=== PATIENT | female | born 2000 | race Caucasian/White ===

== ENCOUNTER 2018-04-14 17:20 | Inpatient (IN) | payer SELFPAY ==
[2018-04-14 17:20] VITALS: BMI 39.8
[2018-04-14 18:14] LABS: BASO % 0.4 % (0.0-2.0); EOS # 0.1 K/uL (0.0-0.7); EOS % 0.7 % (0.0-4.0); HEMOGLOBIN 12.8 g/dL (11.0-16.0); LYMPH # 1.7 K/uL (1.0-4.3); LYMPH % 19.6 % (20.0-40.0); MEAN CELL VOLUME 71.2 fL (81.0-99.0); MEAN CORPUSCULAR HEMOGLOBIN 22.7 pg (27.0-31.0); MEAN CORPUSCULAR HGB CONC 31.9 g/dL (33.0-37.0); MONO # 0.5 K/uL (0.0-0.8); MONO % 5.7 % (0.0-10.0); NEUT # 6.6 K/uL (1.8-7.0); NEUT % 73.6 % (50.0-75.0); RBC 5.63 Mil/uL (3.80-5.20); RED CELL DISTRIBUTION WIDTH 14.7 % (11.5-14.5); WHITE BLOOD COUNT 8.9 K/uL (4.8-10.8)
[2018-04-14 18:19] LABS: SQUAMOUS EPITHIAL 1 /hpf (0-5); URINE BACTERIA RARE (<OCC); URINE BILIRUBIN NEGATIVE (NEGATIVE); URINE BLOOD 1+ (NEGATIVE); URINE CLARITY Clear (Clear); URINE COLOR Yellow (YELLOW); URINE GLUCOSE (UA) NORMAL (Normal); URINE LEUKOCYTE ESTERASE NEG Leu/uL (Negative); URINE PROTEIN NEGATIVE (NEGATIVE)
[2018-04-14 18:20] LABS: HCG,QUALITATIVE URINE NEGATIVE (NEGATIVE)
[2018-04-14 18:28] LABS: ACETAMINOPHEN < 10.0 ug/mL (10.0-30.0); ALB/GLOB RATIO 1.3 (1.0-2.1); ALBUMIN 4.1 g/dL (3.5-5.0); ALT/SGPT 83 U/L (9-52); AST/SGOT 49 U/L (14-36); BLOOD UREA NITROGEN 16 mg/dL (7-17); CALCIUM 8.7 mg/dl (8.6-10.4); GFR NON-AFRICAN AMERICAN > 60; SALICYLATE 13.7 mg/dL 1
[2018-04-14 18:31] LABS: BARBITURATES, UR NEGATIVE (NEGATIVE); BENZODIAZEPINES, UR NEGATIVE (NEGATIVE); OPIATES, UR NEGATIVE (NEGATIVE); PHENCYCLIDINE, UR NEGATIVE (NEGATIVE)
--- NOTE | 2018-04-14 18:47 | C.PDOC ---
History Of Present Illness 18 years old female with PMHx of Anxiety presents to ED for complaints of abdominal pain associated with nausea. Patient states "my anxiety hit me so hard, I took 9 aspirin pills 2 hours ago." Denies medical problems, vomiting, chest pain, hallucinations, HI, or other complaints. Patient admits to SI. She also states "I am really stressed from school and home problems, but I love going to my job at [employer]." Time Seen by Provider: 04/14/18 17:30 Chief Complaint (Nursing): Psychiatric Evaluation History Per: Patient History/Exam Limitations: no limitations Onset/Duration Of Symptoms: Hrs Current Symptoms Are (Timing): Still Present Suicide/Self Injury Attempted (Context): Ingestion (9 non enteric coated 325 mg aspirin tablets) Modifying Factor(s): None Associated Symptoms: Anxiety, Suicidal Thoughts, Suicidal Plan Involuntary Hold By: None Recent travel outside of the [place]: No Past Medical History Reviewed: Historical Data, Nursing Documentation, Vital Signs Vital Signs: Last Vital Signs Temp 98.5 F 04/14/18 17:20 Pulse 70 04/14/18 17:20 Resp 20 04/14/18 17:20 BP 134/79 04/14/18 17:20 Pulse Ox 98 04/14/18 17:20 - Medical History PMH: No Chronic Diseases Surgical History: Appendectomy, Cholecystectomy, Tonsillectomy - [facility] Procedures LAPAROSCOPIC CHOLECYSTECTOMY (11/18/12) Family History: States: No Known Family Hx - Social History Hx Alcohol Use: No Hx Substance Use: Yes - Immunization History Hx Tetanus Toxoid Vaccination: No Hx Influenza Vaccination: No Hx Pneumococcal Vaccination: No Review Of Systems Constitutional: Negative for: Fever, Chills Gastrointestinal: Positive for: Nausea, Abdominal Pain. Negative for: Vomiting, Diarrhea Skin: Negative for: Rash Neurological: Negative for: Weakness, Numbness Psych: Positive for: Anxiety, Suicidal ideation Physical Exam - Physical Exam Appears: Non-toxic, No Acute Distress Skin: Warm, Dry, No Rash Head: Atraumatic, Normacephalic Eye(s): bilateral: Normal Inspection, PERRL, EOMI Ear(s): Bilateral: Other (No tinnitus) Oral Mucosa: Moist ([place]) Throat: Normal, No Erythema, No Exudate, No Drooling, No Mass Neck: Normal ROM, Supple Chest: Symmetrical, No Tenderness Cardiovascular: Rhythm Regular, No Murmur Respiratory: Normal Breath Sounds, No Rales, No Rhonchi, No Wheezing Gastrointestinal/Abdominal: Bowel Sounds (Normal/Active ), Soft, Tenderness (Suprapubic ), No Distention, No Guarding, No Rebound Back: Normal Inspection, No CVA Tenderness Extremity: Normal ROM Extremity: Bilateral: Atraumatic, Normal Color And Temperature, Normal ROM Pulses: Left Radial: Normal, Right Radial: Normal Neurological/Psych: Oriented x3, Normal Speech Gait: Steady ED Course And Treatment - Laboratory Results Result Diagrams: 04/14/18 18:12 04/14/18 18:12 O2 Sat by Pulse Oximetry: 98 (RA) Pulse Ox Interpretation: Normal Medical Decision Making Medical Decision Making: Plan: * Zofran * Blood work * Urinalysis * Crisis Notified 19:35 -- Crisis called and states that [facility] denies SI right now so she will be taken off one-to-one. Progress: * Blood found in urine; however patient is currently on her period. 21:13 -- Talked to poison control who stated that if salicylate level is trending downward, patient can be medically cleared. 2423 -- Salicylates levels are 16.1. Spoke with Poison Control who said patient has to be under observation. Patient has to be medically admitted. Disposition Counseled Patient/Family Regarding: Studies Performed, Diagnosis - Disposition Disposition: HOSPITALIZED Disposition Time: 22:53 Condition: STABLE - Clinical Impression Clinical Impression: Drug overdose - Scribe Statement The provider has reviewed the documentation as recorded by the Laviniaibniecy Cabrera All medical record entries made by the Scribe were at my direction and personally dictated by me. I have reviewed the chart and agree that the record accurately reflects my personal performance of the history, physical exam, medical decision making, and the department course for this patient. I have also personally directed, reviewed, and agree with the discharge instructions and disposition.
[2018-04-14 20:33] LABS: INR 1.2; PROTHROMBIN TIME 12.9 SECONDS (9.7-12.2)
--- NOTE | 2018-04-14 23:31 | CP.PCM.HP ---
<Carly Steven P - Last Filed: 04/15/18 10:46> History of Present Illness - History of Present Illness History of Present Illness: H&P for hospitalist service CC: Suicide attempt HPI: 18 year old female with PMHx of anxiety and depression presents to ED after having ingested 9 tablets of aspirin in an attempt to commit suicide. States her anxiety has been building up from stress at home prompting her to take the tablets. She told her friend what she had done, who immediately called 911. Now, in ED patient states she no longer wishes to take her life. She complains of a brief episode of nausea and epigastric abdominal pain, as well as chest pain and shortness of breath immediately following incident, which she states feels like her usual panic attacks. Symptoms resolved with zofran in the ED. Patient reports depressed mood, low energy, loss of appetite, poor sleep and difficulty concentrating for the last few weeks. Patient denies homicidal ideation, hallucinations, fever, chills, vomiting, hematemesis, hematuria, hematochezia, bleeding, or bruising. PMHx: Anxiety, Depression PSHx: Appendectomy 2011, cholecystectomy 2011, Tonsillectomy over 10 years ago Meds: None Allergies: NKDA FamHx: mother and aunt with DM SocHx: Drinks socially on weekends, smokes marijuana a few times per week. 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 -HEENT: No dizziness, No change in vision, No change in hearing, No sore throat, No dysphagia, No nasal congestion, No mucous. -Cardio: + chest pain, No palpitations, No lower extremity edema, No orthopnea. -Resp: No cough,+ dyspnea, No hemoptysis, No wheezing, No pain on inspiration. -GI: + abdominal pain, + nausea, No vomiting, No diarrhea/constipation, No hematochezia, No hematemesis. -: No dysuria, No urinary freq, No incontinence, No hematuria, No change in urinary stream. -MSK: No back pain, No muscle weakness, No radiating pain. -Skin: No itching, No rash, No lesions. -Neuro: No confusion, No numbness, No tingling, No focal weakness, No radicular pain, No syncope. -Psych: + anxiety, + depression, No H/I, + S/I, No hallucinations. Present on Admission - Present on Admission Any Indicators Present on Admission: No Past Patient History - Past Social History Smoking Status: Current Some Days Smoker - CARDIAC Hx Cardiac Disorders: No Hx Hypertension: No - PULMONARY Hx Tuberculosis: No - NEUROLOGICAL HX Cerebrovascular Accident: No Hx Seizures: No - HEMATOLOGICAL/ONCOLOGICAL Hx Cancer: No Hx Human Immunodeficiency Virus (HIV): No - GENITOURINARY/GYNECOLOGICAL Hx Sexually Transmitted Disorders: No - PSYCHIATRIC Hx Substance Use: Yes - SURGICAL HISTORY Hx Appendectomy: Yes Hx Cholecystectomy: Yes Hx Tonsillectomy: Yes - ANESTHESIA Hx Anesthesia: Yes Hx Anesthesia Reactions: No Hx Malignant Hyperthermia: No Meds Allergies/Adverse Reactions: Allergies Allergy/AdvReac Type Severity Reaction Status Date / Time No Known Allergies Allergy Verified 11/18/12 06:28 Physical Exam - Constitutional Appears: Non-toxic, No Acute Distress - Head Exam Head Exam: ATRAUMATIC, NORMOCEPHALIC - Eye Exam Eye Exam: EOMI, Normal appearance, PERRL - ENT Exam ENT Exam: Mucous Membranes Moist - Neck Exam Neck exam: Positive for: Full Rom, Normal Inspection - Respiratory Exam Respiratory Exam: Clear to Auscultation Bilateral, NORMAL BREATHING PATTERN. absent: Rhonchi, Wheezes, Respiratory Distress - Cardiovascular Exam Cardiovascular Exam: RRR, +S1, +S2. absent: Bradycardia, Tachycardia, Systolic Murmur - GI/Abdominal Exam GI & Abdominal Exam: Normal Bowel Sounds, Soft, Tenderness (mild epigastric tenderness). absent: Distended, Mass Additional comments: obese - Extremities Exam Extremities exam: Positive for: normal capillary refill (normal), normal inspection. Negative for: calf tenderness, pedal edema - Neurological Exam Neurological exam: Alert, Oriented x3 - Psychiatric Exam Psychiatric exam: Normal Affect, Normal Mood - Skin Skin Exam: Dry, Intact, Normal Color, Warm Results - Vital Signs Recent Vital Signs: Last Vital Signs Temp 98.5 F 04/14/18 17:20 Pulse 70 04/14/18 17:20 Resp 20 04/14/18 17:20 BP 134/79 04/14/18 17:20 Pulse Ox 98 04/14/18 22:53 - Labs Result Diagrams: 04/15/18 07:14 04/15/18 07:14 Labs: Laboratory Results - last 24 hr 04/14/18 04/14/18 04/14/18 18:12 18:12 18:12 WBC 8.9 RBC 5.63 H Hgb 12.8 Hct 40.1 MCV 71.2 L D MCH 22.7 L MCHC 31.9 L RDW 14.7 H Plt Count 272 MPV 9.0 Neut % (Auto) 73.6 Lymph % (Auto) 19.6 L [place] % (Auto) 5.7 Eos % (Auto) 0.7 Baso % (Auto) 0.4 Neut # (Auto) 6.6 Lymph # (Auto) 1.7 [place] # (Auto) 0.5 Eos # (Auto) 0.1 Baso # (Auto) 0.0 PT INR APTT Sodium 140 Potassium 3.9 Chloride 104 Carbon Dioxide 28 Anion Gap 12 BUN 16 Creatinine 0.7 Est GFR ( Amer) > 60 Est GFR (Non-Af Amer) > 60 Random Glucose 100 Calcium 8.7 Phosphorus 3.2 Magnesium 2.1 Total Bilirubin 0.5 AST 49 H ALT 83 H D Alkaline Phosphatase 108 Total Protein 7.2 Albumin 4.1 Globulin 3.1 Albumin/Globulin Ratio 1.3 Urine Color Yellow Urine Clarity Clear Urine pH 5.0 Ur Specific [place] 1.030 Urine Protein Negative Urine Glucose (UA) Normal Urine Ketones Negative Urine Blood 1+ H Urine Nitrate Negative Urine Bilirubin Negative Urine Urobilinogen 4.0 H Ur Leukocyte Esterase Neg Urine WBC (Auto) 1 Urine RBC (Auto) 3 Ur Squamous Epith Cells 1 Urine Bacteria Rare Urine HCG, Qual Negative Salicylates Urine Opiates Screen Urine Methadone Screen Acetaminophen Ur Barbiturates Screen Ur Phencyclidine Scrn Ur Amphetamines Screen U Benzodiazepines Scrn U Oth Cocaine Metabols U Cannabinoids Screen Alcohol, Quantitative < 10 04/14/18 04/14/18 04/14/18 18:12 18:12 20:14 WBC RBC Hgb Hct MCV MCH MCHC RDW Plt Count MPV Neut % (Auto) Lymph % (Auto) [place] % (Auto) Eos % (Auto) Baso % (Auto) Neut # (Auto) Lymph # (Auto) [place] # (Auto) Eos # (Auto) Baso # (Auto) PT 12.9 H INR 1.2 APTT 24 Sodium Potassium Chloride Carbon Dioxide Anion Gap BUN Creatinine Est GFR ( Amer) Est GFR (Non-Af Amer) Random Glucose Calcium Phosphorus Magnesium Total Bilirubin AST ALT Alkaline Phosphatase Total Protein Albumin Globulin Albumin/Globulin Ratio Urine Color Urine Clarity Urine pH Ur Specific [place] Urine Protein Urine Glucose (UA) Urine Ketones Urine Blood Urine Nitrate Urine Bilirubin Urine Urobilinogen Ur Leukocyte Esterase Urine WBC (Auto) Urine RBC (Auto) Ur Squamous Epith Cells Urine Bacteria Urine HCG, Qual Salicylates 13.7 Urine Opiates Screen Negative Urine Methadone Screen Negative Acetaminophen < 10.0 L Ur Barbiturates Screen Negative Ur Phencyclidine Scrn Negative Ur Amphetamines Screen Negative U Benzodiazepines Scrn Negative U Oth Cocaine Metabols Negative U Cannabinoids Screen Positive H Alcohol, Quantitative 04/14/18 21:55 WBC RBC Hgb Hct MCV MCH MCHC RDW Plt Count MPV Neut % (Auto) Lymph % (Auto) [place] % (Auto) Eos % (Auto) Baso % (Auto) Neut # (Auto) Lymph # (Auto) [place] # (Auto) Eos # (Auto) Baso # (Auto) PT INR APTT Sodium Potassium Chloride Carbon Dioxide Anion Gap BUN Creatinine Est GFR ( Amer) Est GFR (Non-Af Amer) Random Glucose Calcium Phosphorus Magnesium Total Bilirubin AST ALT Alkaline Phosphatase Total Protein Albumin Globulin Albumin/Globulin Ratio Urine Color Urine Clarity Urine pH Ur Specific [place] Urine Protein Urine Glucose (UA) Urine Ketones Urine Blood Urine Nitrate Urine Bilirubin Urine Urobilinogen Ur Leukocyte Esterase Urine WBC (Auto) Urine RBC (Auto) Ur Squamous Epith Cells Urine Bacteria Urine HCG, Qual Salicylates 16.1 Urine Opiates Screen Urine Methadone Screen Acetaminophen Ur Barbiturates Screen Ur Phencyclidine Scrn Ur Amphetamines Screen U Benzodiazepines Scrn U Oth Cocaine Metabols U Cannabinoids Screen Alcohol, Quantitative Assessment & Plan - Assessment and Plan (Free Text) Plan: 18 year old female with PMHx of depression and anxiety admitted for attempted suicide and salicylates toxicity. Salicylate toxicity -Poison control called in ED -Salicylate level:13.7->16. 1->6.4 -1/2NS at 100mls/hr -Maalox for epigastric pain Suicide attempt Hx Depression, anxiety -Patient not taking any medication -Patient no longer wishes to harm herself -Psych consulted, help appreciated. Prophylaxis -anticoagulation contraindicated in light of Aspirin overdose attempt -SCDs -GI prophylaxis not indicated Case discussed with attending, Dr. Meade. <Jason Meade - Last Filed: 04/16/18 19:05> Results - Vital Signs Recent Vital Signs: Last Vital Signs Temp 97.5 F L 04/16/18 06:52 Pulse 92 H 04/16/18 16:09 Resp 20 04/16/18 06:52 BP 110/61 04/16/18 16:09 Pulse Ox 98 04/15/18 18:45 - Labs Result Diagrams: 04/16/18 07:54 04/16/18 07:54 Labs: Laboratory Results - last 24 hr 04/16/18 04/16/18 04/16/18 07:54 07:54 07:54 WBC 8.0 RBC 5.24 H Hgb 12.1 Hct 37.7 MCV 72.0 L MCH 23.0 L MCHC 32.0 L RDW 14.4 Plt Count 272 MPV 9.0 Neut % (Auto) 60.6 Lymph % (Auto) 32.9 [place] % (Auto) 4.9 Eos % (Auto) 1.1 Baso % (Auto) 0.5 Neut # (Auto) 4.8 Lymph # (Auto) 2.6 [place] # (Auto) 0.4 Eos # (Auto) 0.1 Baso # (Auto) 0.0 PT 14.1 H INR 1.3 Sodium 139 Potassium 3.7 Chloride 104 Carbon Dioxide 28 Anion Gap 11 BUN 12 Creatinine 0.6 L Est GFR ( Amer) > 60 Est GFR (Non-Af Amer) > 60 Random Glucose 89 Calcium 8.7 Phosphorus 3.7 Magnesium 2.1 Total Bilirubin 0.7 AST 36 ALT 71 H Alkaline Phosphatase 80 Total Protein 6.4 Albumin 3.5 Globulin 2.9 Albumin/Globulin Ratio 1.2 Assessment & Plan - Date & Time Date: 04/16/18 (I have seen and examined the patient. I agree with findings and plan of care as documented by Dr. Steven. Patient with salicylate toxicity secondary to suicide attempt. Poison control contacted by ED. Advised to observe overnight. Consult to psych. Monitor for acute changes.) Time: 19:02 Attending/Attestation - Attestation I have personally seen and examined this patient.: Yes I have fully participated in the care of the patient.: Yes I have reviewed all pertinent clinical information: Yes
[2018-04-15] MEDS ORDERED: Aluminum Hydroxide/Magnesium Hydroxide Susp (30 mL) PO PRN (00:47)
[2018-04-15] MEDS: Sodium Chloride 0.45% 1,000 ML IV SCH ×2 (01:21→10:01)
[2018-04-15 07:27] LABS: BASO % 0.3 % (0.0-2.0); EOS % 0.6 % (0.0-4.0); HEMOGLOBIN 11.6 g/dL (11.0-16.0); LYMPH # 2.7 K/uL (1.0-4.3); LYMPH % 34.3 % (20.0-40.0); MEAN CELL VOLUME 71.6 fL (81.0-99.0); MEAN CORPUSCULAR HEMOGLOBIN 23.2 pg (27.0-31.0); MEAN CORPUSCULAR HGB CONC 32.3 g/dL (33.0-37.0); MEAN PLATELET VOLUME 9.4 fL (7.2-11.7); MONO # 0.5 K/uL (0.0-0.8); MONO % 6.4 % (0.0-10.0); NEUT # 4.6 K/uL (1.8-7.0); NEUT % 58.4 % (50.0-75.0); NRBC % 0.1 % (0.0-2.0); RBC 5.01 Mil/uL (3.80-5.20); RED CELL DISTRIBUTION WIDTH 14.4 % (11.5-14.5); WHITE BLOOD COUNT 7.8 K/uL (4.8-10.8)
[2018-04-15 07:41] LABS: ALB/GLOB RATIO 1.3 (1.0-2.1); ALBUMIN 3.4 g/dL (3.5-5.0); ALT/SGPT 72 U/L (9-52); AST/SGOT 40 U/L (14-36); BLOOD UREA NITROGEN 16 mg/dL (7-17); CALCIUM 8.3 mg/dl (8.6-10.4); GFR NON-AFRICAN AMERICAN > 60
--- NOTE | 2018-04-15 07:47 | CP.PCM.PN ---
Subjective - Date & Time of Evaluation Date of Evaluation: 04/15/18 Time of Evaluation: 07:47 - Subjective Subjective: PGY-1 Medicine progress note for Dr. Eve Mireles Patient seen and examined at bedside. Patient states she is feeling better, her abdominal pain has resolved. Patient denies suicidal and homicidal ideation. She further denies fevers, chills, shortness of breath, chest pain, nausea, vomiting, or diarrhea. Objective - Vital Signs/Intake and Output Vital Signs (last 24 hours): Temp Pulse Resp BP Pulse Ox 97.8 F 72 20 98/58 L 97 04/15/18 04:00 04/15/18 04:00 04/15/18 04:00 04/15/18 04:00 04/15/18 04:00 - Medications Medications: Current Medications Al Hydrox/Mg Hydrox/Simethicone (Maalox 30 Ml) 30 ml PO BID PRN PRN Reason: Indigestion / Heartburn Sodium Chloride (Sodium Chloride 0.45%) 1,000 mls @ 100 mls/hr IV .Q10H ALFRED Last Admin: 04/15/18 01:21 Dose: 100 mls/hr Influenza Virus Vaccine (Fluzone Quad [id number]) 60 mcg IM .ONCE ONE Stop: 04/15/18 10:01 Pneumococcal Polyvalent Vaccine (Pneumovax 23 Vaccine) 0.5 ml IM .ONCE ONE Stop: 04/15/18 10:01 - Labs Labs: 04/15/18 07:14 04/15/18 07:14 PT 12.9 SECONDS (9.7-12.2) H 04/14/18 20:14 INR 1.2 04/14/18 20:14 APTT 24 SECONDS (21-34) 04/14/18 20:14 - Additional Findings Additional findings: - Constitutional Appears: Non-toxic, No Acute Distress - Head Exam Head Exam: ATRAUMATIC, NORMOCEPHALIC - Eye Exam Eye Exam: EOMI, Normal appearance, PERRL - ENT Exam ENT Exam: Mucous Membranes Moist - Neck Exam Neck exam: Positive for: Full Rom, Normal Inspection - Respiratory Exam Respiratory Exam: Clear to Auscultation Bilateral, NORMAL BREATHING PATTERN. absent: Rhonchi, Wheezes, Respiratory Distress - Cardiovascular Exam Cardiovascular Exam: RRR, +S1, +S2. absent: Bradycardia, Tachycardia, Systolic Murmur - GI/Abdominal Exam GI & Abdominal Exam: Normal Bowel Sounds, Soft, Tenderness (mild epigastric tenderness). absent: Distended, Mass Additional comments: obese - Extremities Exam Extremities exam: Positive for: normal capillary refill (normal), normal inspection. Negative for: calf tenderness, pedal edema - Neurological Exam Neurological exam: Alert, Oriented x3 - Psychiatric Exam Psychiatric exam: Normal Affect, Normal Mood - Skin Skin Exam: Dry, Intact, Normal Color, Warm Assessment and Plan - Assessment and Plan (Free Text) Assessment: 18 year old female with PMHx of depression and anxiety admitted for attempted suicide and salicylate toxicity. Plan: Salicylate toxicity: - Poison control called in ED - Salicylate level:13.7->16. 1->6.4 - IV fluids: 1/2 NS @ 100mls/hr - Maalox 30mL PO BID PRN - abdominal pain - Zofran PRN Suicide attempt Hx Depression, anxiety: - Patient not taking any medication - Patient denies suicidal/homicidal ideation - Psych consulted, Dr. Rey - One-to-one - Transfer patient to Psychiatry unit Prophylaxis: - Anticoagulation contraindicated in light of Aspirin overdose attempt - SCDs - GI prophylaxis not indicated Case discussed with Dr. Eve Hackett, PGY-1
[2018-04-15 08:09] LABS: INR 1.2
[2018-04-15] MEDS ORDERED: Influenza Vaccine 60 MCG/0.5 ML SYR (3 yr & up) IM ONE (10:00)
[2018-04-15] MEDS ORDERED: Pneumococcal 23-Valent Vaccine IM ONE (10:00)
[2018-04-15] MEDS ORDERED: Enoxaparin 40 mg Syringe SC SCH (10:00)
--- NOTE | 2018-04-15 18:33 | PCM.BM ---
<Katja Marcus - Last Filed: 04/15/18 18:31> Treatment Plan Problems - Problems identified on initial assessmt Anxiety Date Initiated: 04/15/18 Time Initiated: 18:31 Assessment reference: NA Status: Active Suicidal Date Initiated: 04/15/18 Time Initiated: 18:32 Assessment reference: NA Status: Active Treatment assets and liabiliti Patient Assests: cooperative, educated, insightful, ADL independent, good support system, negotiates basic needs, cognitively intact Patient Liabilities: live alone (Lives with family), substance abuse (THC) - Milieu Protocol Maintain good personal hygiene: daily Encourage regular showers, daily Remind patient to perform daily oral care, daily Assist patient to perform ADL's Conduct patient checks and document Observation sheet: Q15 minutes (Safety) Maintain personal safety: every shift Educate patient to report safety concerns to staff, every shift Monitor environment for contraband/sharps Medication safety: Monitor for expected outcome, potential side effects: every shift, Assess barriers to learning: every shift, Assess readiness for medication education: every shift <Sonja William - Last Filed: 04/17/18 10:13> Family Contact Family involvement: Family/SO is involved Family contact: Patient declines to allow family contact at present - Goals for Treatment Patient goals for treatment: "I want to go home." Discharge/Continuing Care - Education Needs Education Needs: Patient Medication, Patient Coping Skills - Discharge Discharge Criteria: Tolerates medication w/o severe side effects, Free of Suicidal thoughts, Reduction of target symptoms Discharge to:: Home, With Family - Treatment Team Participation Discussed with Family/SO: No Was Patient/Family/SO present at Treatment Team Meeting: Yes <Milton Rey - Last Filed: 04/17/18 11:16> - Diagnosis (1) Major depressive disorder, recurrent, moderate Status: Acute Interventions: 04/17/18 11:16 * Assess/adjust medications daily and /or as needed * See patient on an individual basis 7x/week to assess symptoms of depression * Monitor for side effects & effectiveness of medications *
[2018-04-15 22:10] VITALS: O2SAT 98
[2018-04-16 06:52] VITALS: RESP 20
[2018-04-16 08:08] LABS: BASO % 0.5 % (0.0-2.0); EOS # 0.1 K/uL (0.0-0.7); EOS % 1.1 % (0.0-4.0); HEMOGLOBIN 12.1 g/dL (11.0-16.0); LYMPH # 2.6 K/uL (1.0-4.3); LYMPH % 32.9 % (20.0-40.0); MONO # 0.4 K/uL (0.0-0.8); MONO % 4.9 % (0.0-10.0); NEUT # 4.8 K/uL (1.8-7.0); NEUT % 60.6 % (50.0-75.0); NRBC % 0.1 % (0.0-2.0); RBC 5.24 Mil/uL (3.80-5.20); RED CELL DISTRIBUTION WIDTH 14.4 % (11.5-14.5)
[2018-04-16 08:11] LABS: INR 1.3; PROTHROMBIN TIME 14.1 SECONDS (9.7-12.2)
[2018-04-16 08:27] LABS: ALB/GLOB RATIO 1.2 (1.0-2.1); ALBUMIN 3.5 g/dL (3.5-5.0); ALT/SGPT 71 U/L (9-52); AST/SGOT 36 U/L (14-36); BLOOD UREA NITROGEN 12 mg/dL (7-17); CALCIUM 8.7 mg/dl (8.6-10.4); GFR NON-AFRICAN AMERICAN > 60
--- NOTE | 2018-04-16 10:40 | PCM.PSYCH ---
Initial Psychiatric Evaluation - Initial Psychiatric Evaluation Type of Admission: Voluntary Legal Status: Capacity Chief Complaint (in patient's own words): I overdosed on pills.' History of Present Illness and Precipitating Events: Pt is a 18 year old female who is single and without any children. Pt is in college at [employer] and working at [employer]. Pt lives with her grandmother, aunt, uncle, and cousins. Pt with a past medical history of anxiety came to [facility] complaining of abdominal pain associated with nausea. Pt states "my anxiety hit me so hard, I took 9 aspirin pills" 2 hours before admission. Today she was consulted by psychiatry. Pt states that her anxiety was overwhelming while she was checking her grades for school which is why she took excessive medication. She states she was not attempting suicide or trying to overdose but rather just wanted to calm down. She admits to suicidal ideations last night but not currently or before last night. She denies any overdose or suicide attempt or plan in the past. Pt denies homicidal ideations or hallucinations. Pt has a history of anxiety since high school but she has not been formally diagnosed. She states she is worried about everything and having trouble sleeping. She also complains of always feeling fatigued. Her anxiety comes in attacks and starts off slow until she cannot breathe. Pt also has trouble concentrating every other day and finds herself "zoning out" when she is with friends. Pt has a loss of appetite, low energy, and a loss of interest in things she used to like to do like going to the gym and school for the past month. She feels guilty about her recent poor grades in school. Pt states she is hopeless, helpless, and worthless. Pt uses marijuana a couple times a month and alcohol socially. Pt denies use of other substances including cocaine, heroin or tobacco products. Pt denies any hospitalizations due to a psychiatric condition. Pt saw a psychiatrist once in the past but was turned off by the lin to using medications. Pt denies any complaints regarding her physical health at this time but is just calm and tired. Past medical history: Denies Allergies: Denies Surgical history: Tonsillectomy, Appendectomy, Cholecystectomy Legal history: Denies Family psychiatric history: Denies Psychiatric history: Anxiety Current Medications: Active Medications Generic Name Dose Route Start Last Admin Trade Name Freq PRN Reason Stop Dose Admin Al Hydrox/Mg Hydrox/Simethicone 30 ml 04/15/18 00:47 Maalox 30 Ml PO BID PRN Indigestion / Heartburn Hydroxyzine HCl 25 mg 04/15/18 19:12 Atarax PO Q6 PRN Anxiety Trazodone HCl 50 mg 04/15/18 22:00 Desyrel PO HS PRN Insomnia Past Psychiatric History - Past Psychiatric History Previous Treatment History: None Pertinent Medical Hx (Current Medical&Sleep Prob, Allergies): Allergies Allergy/AdvReac Type Severity Reaction Status Date / Time No Known Allergies Allergy Verified 11/18/12 06:28 No Known Home Med 04/14/18 Review of Systems - Review of Systems All systems: reviewed and no additional remarkable complaints except - Psychiatric Psychiatric: Anxiety, Irritability, Suicidal Ideation Mental Status Examination - Personal Presentation Personal Presentation: Looks stated age - Affect Affect: Constricted, Depressed - Motor Activity Motor Activity: Calm - Reliability in Providing Information Reliability in Providing Information: Fair - Speech Speech: Organized - Mood Mood: Depressed, Anxious - Formal Thought Process Formal Thought Process: Flight of ideas - Obsessions/Compulsions Obsessions: No Compulsions: No - Cognitive Functions Orientation: Person, Place, Situation, Time Sensorium: Alert Attention/Concentration: Attentive Abstract Thinking: [place] Estimate of Intelligence: Below average Judgement: Imparied, as evidence by: Poor judgement, Imparied, as evidence by: Lack of insight into illness - Risk Risk: Suicidal, Diminished functioning - Strength & Assets Inventory Strength & Assets Inventory: Family support DSM 5 DX - DSM 5 DSM 5 Diagnosis: Bipolar disorder MRE depressed severe without psychotic features Cannabis use disorder moderate - Recommended/Plan of Treatment Treatment Recommendations and Plan of Treatment: Bipolar disorder MRE depressed severe without psychotic features -CBT -Psychoeducation -Supportive therapy, group therapy, individual therapy -Topamax 25 mg PO BID -Trazodone 50 mg by mouth daily at bedtime -Hydroxyzine 25 mg by mouth every 6 hours when necessary -Aripiprazole 5 mg by mouth daily at bedtime Cannabis use disorder moderate -Monitor signs and symptoms -Use AR for abstinence - Smoking Cessation Smoking Cessation Initiated: No
--- NOTE | 2018-04-16 13:48 | CP.PCM.PN ---
Subjective - Date & Time of Evaluation Date of Evaluation: 04/16/18 Time of Evaluation: 08:00 - Subjective Subjective: Patient was transferred to in-patient psych last night. Patient is medically optimized and her salicylate level is trending down. Medicine will sign off. Please contact us for any questions. Objective - Vital Signs/Intake and Output Vital Signs (last 24 hours): Temp Pulse Resp BP Pulse Ox 97.5 F L 65 20 93/57 L 98 04/16/18 06:52 04/16/18 06:52 04/16/18 06:52 04/16/18 06:52 04/15/18 18:45 - Medications Medications: Current Medications Al Hydrox/Mg Hydrox/Simethicone (Maalox 30 Ml) 30 ml PO BID PRN PRN Reason: Indigestion / Heartburn Aripiprazole (Abilify) 5 mg PO DAILY ALFRED Hydroxyzine HCl (Atarax) 25 mg PO Q6 PRN PRN Reason: Anxiety Topiramate (Topamax) 25 mg PO BID ALFRED Trazodone HCl (Desyrel) 50 mg PO HS PRN PRN Reason: Insomnia - Labs Labs: 04/16/18 07:54 04/16/18 07:54 PT 14.1 SECONDS (9.7-12.2) H 04/16/18 07:54 INR 1.3 04/16/18 07:54 APTT 24 SECONDS (21-34) 04/14/18 20:14
--- NOTE | 2018-04-17 01:00 | PCM.PYCHPN ---
Psychiatric Progress Note - Psychiatric Progress Note Patient seen today, length of contact: 15 min Patient Chief Complaint: I am feeling better.' Problems Identified/Issues Discussed: Patient seen and evaluated, chart reviewed and discussed with the nurse. Pt reports improvement in her depressed mood, and feelings of hopelessness and helplessness. She remained isolated and withdrawn, and confined to her room. She denies any auditory hallucinations, visual hallucinations, or any paranoia. Patient is partially compliant with medications and denies any side effects. Symptoms are improving but pt needs more time to stabilize. Support and psychoeducation given. Medication Change: Yes Medical Record Reviewed: Yes Mental Status Examination - Cognitive Function Orientation: Person, Place, Situation, Time Memory: Intact Attention: WNL Concentration: Poor Association: WNL Fund of Knowledge: Poor - Mood Mood: Depressed, Anxious - Affect Affect: Constricted, Depressed - Speech Speech: Soft - Formal Thought Process Formal Thought Process: Flight of ideas - Suicidal Ideation Suicidal Ideation: No - Homicidal Ideation Homicidal Ideation: No Goal/Treatment Plan - Goal/Treatment Plan Need for Continued Stay: Severe depression anxiety, Severe functional impairment Progress Toward Problem(s) and Goals/Treatment Plan: Bipolar disorder MRE depressed severe without psychotic features -CBT -Psychoeducation -Supportive therapy, group therapy, individual therapy -Topamax 25 mg PO BID -Trazodone 50 mg by mouth daily at bedtime -Hydroxyzine 25 mg by mouth every 6 hours when necessary -Aripiprazole 5 mg by mouth daily at bedtime Cannabis use disorder moderate -Monitor signs and symptoms -Use PR for abstinence - Smoking Cessation Smoking Cessation Initiated: No
[2018-04-17 06:17] VITALS: BP 85/53; PULSE 66; TEMP 97.8
[2018-04-17 07:28] LABS: BASO % 0.3 % (0.0-2.0); EOS # 0.1 K/uL (0.0-0.7); EOS % 0.9 % (0.0-4.0); HEMOGLOBIN 12.6 g/dL (11.0-16.0); LYMPH # 2.8 K/uL (1.0-4.3); LYMPH % 27.3 % (20.0-40.0); MEAN CELL VOLUME 71.6 fL (81.0-99.0); MEAN CORPUSCULAR HEMOGLOBIN 23.6 pg (27.0-31.0); MEAN CORPUSCULAR HGB CONC 32.9 g/dL (33.0-37.0); MEAN PLATELET VOLUME 9.2 fL (7.2-11.7); MONO # 0.5 K/uL (0.0-0.8); NEUT # 6.9 K/uL (1.8-7.0); NEUT % 66.5 % (50.0-75.0); NRBC % 0.2 % (0.0-2.0); RBC 5.34 Mil/uL (3.80-5.20); RED CELL DISTRIBUTION WIDTH 14.5 % (11.5-14.5); WHITE BLOOD COUNT 10.3 K/uL (4.8-10.8)
[2018-04-17 07:40] LABS: ALB/GLOB RATIO 1.3 (1.0-2.1); ALBUMIN 3.9 g/dL (3.5-5.0); ALT/SGPT 71 U/L (9-52); AST/SGOT 42 U/L (14-36); BLOOD UREA NITROGEN 13 mg/dL (7-17); CALCIUM 8.9 mg/dl (8.6-10.4); GFR NON-AFRICAN AMERICAN > 60
[2018-04-17 07:46] LABS: INR 1.3; PROTHROMBIN TIME 14.3 SECONDS (9.7-12.2)
--- NOTE | 2018-04-17 10:22 | PCM.PYCHDC ---
Mental Status Examination - Mental Status Examination Orientation: Person, Place, Situation, Time Memory: Intact Mood: Neutral Affect: Constricted Speech: Soft Attention: WNL Concentration: WNL Association: WNL Fund of Knowledge: WNL Formal Thought Process: No Impairment Description of patient's judgement and insight: partially impaired Psychotic Thoughts and Behaviors: denies any AVH Suicidal Ideation: No Current Homicidal Ideation?: No Discharge Summary - Discharge Note Reason for Hospitalization: Pt is a 18 year old female who is single and without any children. Pt is in college at [employer] and working at [employer]. Pt lives with her grandmother, aunt, uncle, and cousins. Pt with a past medical history of anxiety came to [facility] complaining of abdominal pain associated with nausea. Pt states "my anxiety hit me so hard, I took 9 aspirin pills" 2 hours before admission. Today she was consulted by psychiatry. Pt states that her anxiety was overwhelming while she was checking her grades for school which is why she took excessive medication. She states she was not attempting suicide or trying to overdose but rather just wanted to calm down. She admits to suicidal ideations last night but not currently or before last night. She denies any overdose or suicide attempt or plan in the past. Pt denies homicidal ideations or hallucinations. Pt has a history of anxiety since high school but she has not been formally diagnosed. She states she is worried about everything and having trouble sleeping. She also complains of always feeling fatigued. Her anxiety comes in attacks and starts off slow until she cannot breathe. Pt also has trouble concentrating every other day and finds herself "zoning out" when she is with friends. Pt has a loss of appetite, low energy, and a loss of interest in things she used to like to do like going to the gym and school for the past month. She feels guilty about her recent poor grades in school. Pt states she is hopeless, helpless, and worthless. Pt uses marijuana a couple times a month and alcohol socially. Pt denies use of other substances including cocaine, heroin or tobacco products. Pt denies any hospitalizations due to a psychiatric condition. Pt saw a psychiatrist once in the past but was turned off by the lin to using medications. Pt denies any complaints regarding her physical health at this time but is just calm and tired. Past medical history: Denies Allergies: Denies Surgical history: Tonsillectomy, Appendectomy, Cholecystectomy Legal history: Denies Family psychiatric history: Denies Psychiatric history: Anxiety Laboratory Data: Abnormal Lab Results 04/17/18 04/17/18 04/17/18 07:00 07:00 07:00 WBC 10.3 RBC 5.34 H Hgb 12.6 Hct 38.3 MCV 71.6 L MCH 23.6 L MCHC 32.9 L RDW 14.5 Plt Count 314 MPV 9.2 Neut % (Auto) 66.5 Lymph % (Auto) 27.3 [place] % (Auto) 5.0 Eos % (Auto) 0.9 Baso % (Auto) 0.3 Neut # (Auto) 6.9 Lymph # (Auto) 2.8 [place] # (Auto) 0.5 Eos # (Auto) 0.1 Baso # (Auto) 0.0 PT 14.3 H INR 1.3 Sodium 138 Potassium 4.0 Chloride 104 Carbon Dioxide 27 Anion Gap 11 BUN 13 Creatinine 0.6 L Est GFR ( Amer) > 60 Est GFR (Non-Af Amer) > 60 Random Glucose 89 Calcium 8.9 Total Bilirubin 0.7 AST 42 H ALT 71 H Alkaline Phosphatase 105 Total Protein 6.9 Albumin 3.9 Globulin 3.0 Albumin/Globulin Ratio 1.3 Consultations:: List each consultation separately and include: 1. Reason for request. 2. Findings. 3. Follow-up Summary of Hospital Course include:: 1. Description of specific treatment plan utilized for patients during their course of treatmen. 2. Summarize the time- course for resolution of acute symptoms and/or regressed behaviors. 3. Describe issues identified and worked on during hospitalization. 4. Describe medication utilized. 5. Describe medical problems identified and treated. 6. Reassessment of suicide risk Summary of Hospital Course: Pt is a 18 year old female who is single and without any children. Pt is in college at [employer] and working at [employer]. Pt lives with her grandmother, aunt, uncle, and cousins. Pt with a past medical history of anxiety came to [facility] complaining of abdominal pain associated with nausea. Pt states "my anxiety hit me so hard, I took 9 aspirin pills" 2 hours before admission. Today she was consulted by psychiatry. Pt states that her anxiety was overwhelming while she was checking her grades for school which is why she took excessive medication. She states she was not attempting suicide or trying to overdose but rather just wanted to calm down. She admits to suicidal ideations last night but not currently or before last night. She denies any overdose or suicide attempt or plan in the past. Pt denies homicidal ideations or hallucinations. Pt has a history of anxiety since high school but she has not been formally diagnosed. She states she is worried about everything and having trouble sleeping. She also complains of always feeling fatigued. Her anxiety comes in attacks and starts off slow until she cannot breathe. Pt also has trouble concentrating every other day and finds herself "zoning out" when she is with friends. Pt has a loss of appetite, low energy, and a loss of interest in things she used to like to do like going to the gym and school for the past month. She feels guilty about her recent poor grades in school. Pt states she is hopeless, helpless, and worthless. Pt uses marijuana a couple times a month and alcohol socially. Pt denies use of other substances including cocaine, heroin or tobacco products. Pt denies any hospitalizations due to a psychiatric condition. Pt saw a psychiatrist once in the past but was turned off by the lin to using medications. Pt denies any complaints regarding her physical health at this time but is just calm and tired. Past medical history: Denies Allergies: Denies Surgical history: Tonsillectomy, Appendectomy, Cholecystectomy Legal history: Denies Family psychiatric history: Denies Psychiatric history: Anxiety - Final Diagnosis (DSM 5) Condition upon Discharge: STABLE DSM 5: Bipolar disorder MRE depressed severe without psychotic features Cannabis use disorder moderate Disposition: HOME/ ROUTINE Follow-up Treatment Plan: Bipolar disorder MRE depressed severe without psychotic features -CBT -Psychoeducation -Supportive therapy, group therapy, individual therapy -Topamax 25 mg PO BID -Trazodone 50 mg by mouth daily at bedtime -Hydroxyzine 25 mg by mouth every 6 hours when necessary -Aripiprazole 5 mg by mouth daily at bedtime Cannabis use disorder moderate -Monitor signs and symptoms -Use VT for abstinence Prescriptions/Medication Reconciliation: Topiramate [Topamax] 25 mg PO BID #60 tab traZODone [Desyrel] 50 mg PO HS PRN #30 tab PRN Reason: Insomnia - Smoking Cessation Smoking Cessation Medication prescribed: No - Antipsychotic Medications Pt discharged on 2 or more routine antipsychotic medications: No
== END 2018-04-17 12:03 | disposition home or self-care (01) | DRG 885 ==
LOC: C.ER 17:20 → C.9E 22:53 → C.6T 23:20 → OBSVTOIN 04-15 17:32 → C.5E 04-15 18:26
PROVIDERS: ADMIT Psychiatry & Neurology Psychiatry; ATTEND Psychiatry & Neurology Psychiatry
PROC: GZ3ZZZZ Medication Management (ICD-10-PCS; principal; 2018-04-15)
PROC: HZ89ZZZ Medication Management for Substance Abuse Treatment, Other Replacement Medication (ICD-10-PCS; 2018-04-15)
PROC: GZHZZZZ Group Psychotherapy (ICD-10-PCS; 2018-04-15)
PROC: GZ56ZZZ Individual Psychotherapy, Supportive (ICD-10-PCS; 2018-04-15)
DX: F31.4 Bipolar disorder, current episode depressed, severe, without psychotic features (principal); T39.012A Poisoning by aspirin, intentional self-harm, initial encounter; F12.20 Cannabis dependence, uncomplicated; F41.0 Panic disorder [episodic paroxysmal anxiety]; Z72.0 Tobacco use; Y92.9 Unspecified place or not applicable; Z83.3 Family history of diabetes mellitus